=== PATIENT | female | born 2000 | race Caucasian/White ===

== ENCOUNTER → 2020-05-26 07:49 | Outpatient (REF) | payer OTHER, SELFPAY ==
--- NOTE | ~2020-05-26 | NM_ITS ---
EXAMINATION: RADIONUCLIDE SOLID FOOD GASTRIC EMPTYING 4-HOUR STUDY CLINICAL INFORMATION: Nausea. COMPARISON: No previous gastric emptying study is available for comparison. TECHNIQUE: A standard meal consisting of 4 oz of Egg Beaters brand equivalent tagged with 1 mCi Tc-99m Sulfur Colloid, 8 oz water and 2 slices of toast with jelly was administered orally to the patient. Images were obtained using a dual head gamma camera in the anterior and posterior projections over of the stomach immediately post ingestion and at hourly intervals up to 4 hours post ingestion. The anterior and posterior counts at each time interval were averaged using the geometric mean and expressed as percentage of the immediate post ingestion counts. FINDINGS: There is good visualization of activity in the stomach immediately post ingestion. As the study progresses, there is good clearance of activity from the stomach and visualization of progressively increasing small bowel activity. However, at the end of the study there is mild abnormal retention of activity in the stomach. Retention in the stomach at each time interval was: 1 hour 85% (normal 37%-90%) 2 hours 57% (normal 30%-60%) 3 hours 27% 4 hours 18% (normal 0%-10%) NM/NM gastric emptying study IMPRESSION: Abnormal study. There is mild abnormal retention of solid food in the stomach at 4 hours.
== END ==
LOC: HO.NUCMED 07:49
PROVIDERS: PCP Nurse Practitioner Gerontology; Visit Provider Nurse Practitioner Gerontology
DX: R11.0 Nausea (principal); E10.65 Type 1 diabetes mellitus with hyperglycemia; E66.09 Other obesity due to excess calories
CPT/HCPCS: 78264; 99213; A9541

== ENCOUNTER 2020-07-18 15:39 | Emergency (ER) | payer OTHER, SELFPAY ==
--- NOTE | 2020-07-18 | XR_ITS ---
EXAMINATION: XR CHEST CLINICAL INFORMATION: Positive skin TB test. COMPARISON: None TECHNIQUE: 2 views of the chest were obtained. FINDINGS: No significant abnormality is noted involving the heart, lungs, mediastinum, bony thorax or soft tissues. XR/XR chest 2V IMPRESSION: Unremarkable chest exam.
[2020-07-18 16:08] VITALS: BP 131/79; PULSE 16; RESP 98; TEMP 36.3; O2SAT 98; BMI 33.3
--- NOTE | 2020-07-18 16:13 | ED.GENADULT ---
HPI - General Adult General Chief complaint: General Medical Stated complaint: POSITIVE TB TEST Time Seen by Provider: 07/18/20 16:12 Source: patient Mode of arrival: ambulatory Limitations: no limitations History of Present Illness HPI narrative: Patient had a TB test read today which positive sent here for chest x-ray patient has no symptoms previously patient had negative for TB testing. Patient denied any recent travel to countries no weight loss no night sweats fever no cough Related Data Home Medications Medication Instructions Recorded Confirmed acetone (urine) test #25 ea 05/26/20 05/26/20 blood sugar diagnostic #10 ea 05/26/20 05/26/20 insulin glargine 100 unit/mL 30 unit SUBCUT ml 05/26/20 05/26/20 subcutaneous solution insulin lispro 100 unit/mL 1 - 150 unit SUBCUT .COMPLEX ml 05/26/20 05/26/20 subcutaneous solution insulin syringe-needle U-100 / #90 ea 05/26/20 05/26/20 mL 31 gauge x 15/64 omeprazole 20 mg capsule,delayed 20 mg PO DAILY 05/26/20 05/26/20 release Previous Rx's Medication Instructions Recorded metoclopramide HCl 5 mg tablet 5 mg PO BID #60 tab 06/10/20 Allergies Allergy/AdvReac Type Severity Reaction Status Date / Time SEAFOOD Allergy Severe RASH AND Uncoded 04/22/20 19:20 FACIAL SWELLING Review of Systems Review of Systems: Yes all other systems are reviewed and are negative [facility] Past Medical History Medical History Diabetes mellitus type 1, uncontrolled Obesity due to excess calories Surgical History Hx of cholecystectomy Family History Family History Father Hypertension Mother No problems noted. Paternal Grandmother No problems noted. Social History Social History Household Members: Spouse and Children Smoking Status: Never smoker Advance Directives: No Advance Directives Information Provided: No Physical Exam Vital Signs: Vital Signs: Last Vital Signs Temp 97.4 F 07/18/20 16:08 Pulse 16 L 07/18/20 16:08 Resp 98 H 07/18/20 16:08 BP 131/79 07/18/20 16:08 Pulse Ox 98 07/18/20 16:08 Body Mass Index 33.3 Appearance: Alert. Oriented X3. No acute distress. Eyes: Pupils equal, round and reactive to light. ENT: Pharynx normal. Neck: Normal inspection. Neck supple. CVS: Normal heart rate and rhythm. Pulses normal. Respiratory: No respiratory distress. Breath sounds normal. Abdomen: Soft and nontender. Skin: Skin warm and dry. Normal skin color. Normal skin turgor. Extremities: No lower extremity edema. Good range of movement Neuro: Oriented X 3. No motor deficit. No sensory deficit. Medical Decision Making MDM Narrative Medical decision making narrative: Patient with positive B testing with negative chest x-ray likely false-positive, patient is medically cleared Discharge Plan Discharge Clinical Impression: Positive skin test for tuberculosis Patient Disposition: Home, Self-Care Additional Instructions: Your chest x-ray is negative for TB and you have false positive TB testing you are medically cleared Prescriptions: No Action metoclopramide HCl 5 mg tablet 5 mg PO BID Qty: 60 RF: 1 (DME) insulin syringe-needle U-100 1/2 mL 31 gauge x 15/64 syringe See Rx Instructions ml .ROUTE .MEDSUPPLY Qty: 90 RF: 0 (DME) TRUEplus Ketone Strip See Rx Instructions strip .ROUTE .MEDSUPPLY Qty: 25 RF: 0 omeprazole 20 mg capsule,delayed release(DR/EC) 20 mg PO DAILY RF: 0 (DME) FreeStyle Lite Strips Strip See Rx Instructions strip Not Applicable .MEDSUPPLY Qty: 10 RF: 0 insulin glargine 100 unit/mL solution 30 unit subcut RF: 0 insulin lispro 100 unit/mL solution 1 - 150 unit subcut .COMPLEX RF: 0 Interventions: ED Discharge Assessment Last Done: 07/18/20 16:31 Discharge Date/Time: 07/18/20 16:32
--- NOTE | 2020-07-18 16:32 | PC.NURSE ---
PT PRESENTS TO ED D/T +TB SKIN TEST THIS AFTERNOON, NO KNOWN EXPOSURE OR SX. XR ORDERED AND REVIEWED BY PROVIDER. PT AWARE/AGREEABLE TO D/C.
== END 2020-07-18 16:32 | disposition home or self-care (01) ==
PROVIDERS: Emergency Provider Internal Medicine; PCP Internal Medicine
DX: R76.11 Nonspecific reaction to tuberculin skin test without active tuberculosis (principal)
CPT/HCPCS: 71046; 99283

== ENCOUNTER → 2020-10-12 08:52 | Outpatient (BNVA) | payer OTHER, SELFPAY | PROVIDERS: PCP Internal Medicine; Visit Provider Nurse Practitioner Gerontology | DX: E10.65 Type 1 diabetes mellitus with hyperglycemia (principal); E66.09 Other obesity due to excess calories | CPT/HCPCS: 82947 ==

== ENCOUNTER → 2020-11-12 07:29 | Outpatient (BNVA) | payer OTHER, SELFPAY | PROVIDERS: PCP Internal Medicine; Visit Provider Nurse Practitioner Gerontology ==

== ENCOUNTER 2020-11-30 09:45 | Outpatient (REF) | payer OTHER, SELFPAY ==
[2020-11-30 11:12] LABS: MANUAL DIFF FLAG NO
[2020-11-30 11:24] LABS: Basophils Percent Auto 0.4 % (0-2); Eosinophils Absolute Auto 0.3 X10*3/uL (0.0-0.4); Eosinophils Percent Auto 4.4 % (0-4); Hematocrit 39.2 % (37-47); Hemoglobin 12.7 g/dl (12.0-16.0); Imm Gran Abs Auto 0.02 X10*3/uL (0.00-0.03); Imm Gran Pct Auto 0.3 % (0.0-0.4); Lymphocytes Absolute Auto 2.2 X10*3/uL (1.2-4.9); Lymphocytes Percent Auto 29.3 % (20-40); Mean Corpuscular HGB Conc 32.4 g/dl (31.0-35.0); Mean Corpuscular Hemoglobin 29.1 pg (27.0-33.0); Mean Corpuscular Volume 89.9 fL (80-98); Mean Platelet Volume 10.6 fL (9.4-12.3); Monocytes Absolute Auto 0.4 X10*3/uL (0.1-1.2); Monocytes Percent Auto 5.3 % (2-11); Neutrophils Absolute Auto 4.4 X10*3/uL (2.0-8.3); Neutrophils Percent Auto 60.3 % (45-73); Platelet Count 313 X10*3/uL (160-400); Red Blood Count 4.36 X10*6/uL (4.20-5.50); Red Cell Distribution Width 12.3 % (11.0-16.0); White Blood Count 7.3 X10*3/uL (4.8-10.8)
== END 2020-11-30 09:46 | disposition home or self-care (01) ==
LOC: HO.HMGCLDS 09:45
PROVIDERS: PCP Internal Medicine; Visit Provider Internal Medicine
DX: D72.829 Elevated white blood cell count, unspecified (principal)
CPT/HCPCS: 36415; 85025

== ENCOUNTER 2022-05-11 08:07 | Outpatient (REF) | payer OTHER, SELFPAY ==
[2022-05-11 09:30] LABS: Hematocrit 39.9 % (37.0-47.0); Hemoglobin 13.2 g/dl (12.0-16.0); Mean Corpuscular HGB Conc 33.1 g/dl (31.0-35.0); Mean Corpuscular Hemoglobin 29.3 pg (27.0-33.0); Mean Corpuscular Volume 88.7 fL (80.0-98.0); Mean Platelet Volume 9.9 fL (9.4-12.3); Platelet Count 251 X10*3/uL (160-400); Red Cell Distribution Width 12.5 % (11.0-16.0)
[2022-05-11 10:43] LABS: HCG Quantitative < 2 mIU/mL
[2022-05-11 15:44] LABS: CT PCR NOT DETECTED (Not Detect.); NG PCR NOT DETECTED (Not Detect.)
== END 2022-05-11 08:08 | disposition home or self-care (01) ==
LOC: HO.LAB 08:07
PROVIDERS: PCP Internal Medicine; Visit Provider Obstetrics & Gynecology
DX: Z11.3 Encounter for screening for infections with a predominantly sexual mode of transmission (principal); N93.9 Abnormal uterine and vaginal bleeding, unspecified
CPT/HCPCS: 36415; 84443; 84702; 85027; 87491; 87591; 99202

== ENCOUNTER 2022-05-11 08:34 | Outpatient (REF) | payer OTHER, SELFPAY | END 2022-05-11 08:35 | disposition home or self-care (01) | LOC: HO.LNP 08:34 | PROVIDERS: Visit Provider Obstetrics & Gynecology | DX: Z01.419 Encounter for gynecological examination (general) (routine) without abnormal findings (principal); N93.9 Abnormal uterine and vaginal bleeding, unspecified | CPT/HCPCS: 88142 ==

== ENCOUNTER 2022-06-16 11:02 | Outpatient (REF) | payer OTHER, SELFPAY ==
--- NOTE | ~2022-06-16 | US_ITS ---
EXAMINATION: US PELVIS CLINICAL INFORMATION: Abnormal urine and vaginal bleeding, last menstrual period one week ago. COMPARISON: CT 01/20/2020 TECHNIQUE: Ultrasound of the pelvis is performed using both transabdominal and transvaginal transducers along with Doppler. Transvaginal imaging is performed due to inadequate visualization transabdominally. FINDINGS: The uterus is heterogeneous and measures 8.3 x 3.5 x 4.7 cm and is retropositioned, limiting visualization. No discrete fibroids. Visualization limited on transabdominal images due to bowel gas. Endometrial thickness is 0.3 cm. Left ovary is unremarkable and measures 2.5 x 1.5 x 1.9 cm, volume 3.7 mL. Right ovary measures 4.2 x 2.2 x 1.6 cm, volume 7.7 mL and is unremarkable. Small amount of free fluid identified adjacent to the right ovary. US/US pelvic and transvaginal IMPRESSION: 1. Unremarkable bilateral ovaries. Small amount of free fluid identified adjacent to the right ovary. 2. Endometrial thickness is 0.3 cm. 3. No discrete fibroids.
== END 2022-06-16 11:03 | disposition home or self-care (01) ==
LOC: HO.US 11:02
PROVIDERS: Visit Provider Obstetrics & Gynecology
DX: N93.9 Abnormal uterine and vaginal bleeding, unspecified (principal)
CPT/HCPCS: 76830; 76856

== ENCOUNTER → 2022-07-06 08:10 | Outpatient (BNVA) | payer OTHER, SELFPAY | PROVIDERS: PCP Internal Medicine; Visit Provider Obstetrics & Gynecology | DX: N93.9 Abnormal uterine and vaginal bleeding, unspecified (principal) | CPT/HCPCS: 99212 ==